=== PATIENT | female | born 1940 ===

== ENCOUNTER 2019-01-09 05:30 | Day surgery (SDC) | payer OTHER ==
[2019-01-09] MEDS ORDERED: MACROBID 100 M100 MG PO (10:27)
[2019-01-09] MEDS ORDERED: ULTRACET PO (10:27)
== END 2019-01-09 13:30 | disposition home or self-care (01) ==
LOC: CIR.AMB 05:30
DX: N81.3 Complete uterovaginal prolapse (principal)